=== PATIENT | male | born 1970 | race Caucasian/White ===

== ENCOUNTER 2019-03-16 16:52 | Outpatient (CLI) | payer MEDICAID, SELFPAY ==
[2019-03-18 04:57] LABS: Vitamin D 25 Total 53.8 ng/ml (30-100)
== END 2019-03-16 17:12 ==
PROVIDERS: PCP Psychiatry & Neurology Psychiatry; Visit Provider Psychiatry & Neurology Psychiatry
DX: E55.9 Vitamin D deficiency, unspecified (principal)
CPT/HCPCS: 36415; 82306